=== PATIENT | female | born 1955 | race Caucasian/White ===

== ENCOUNTER 2021-05-02 06:23 | Day surgery (SDC) | payer MEDICARE ==
[~2021-05-02] VITALS: Ht 147.3 cm; Wt 54.2 kg
[~2021-05-02 06:23] MED LIST: ALBU90OI61 INH; AMOX500 PO; ASPI325 PO; ATOR20 PO; Acetaminophen650 M1 PO; BUPR150ER PO; CALPHO600 PO; CARV6.25 PO; CEPH500 PO; CYCL10 PO; Celexa20 MG PO; DOCU100 PO; ERGO400 PO; ERGO50000 PO; ESTR2; FISH1000 PO; FURO40 PO; HYDACE5 PO; LISI10 PO; NEBI5 PO; OMEP20ER PO; PRAM.125 PO; PROG100 PO; RANI150 PO; ROPI1 PO; SERT25 PO; SPIR25 PO; SULTRIDS; SULTRIDS PO
--- NOTE | 2021-05-02 10:07 | NUR ---
RECEIVED REPORT FROM HEMANTH BAH RN. PT CAME TO STEPDOWN AXOX4, TOLERATING PO FLUIDS AND REPOSITIONING SELF IN BED. PT REPORTS HAVING 5/10 DISCOMFORT ON LEFT SIDE INCISION SITE. PT HAS THREE INCISION SITES, ONE ON RIGHT SIDE OF ABDOMEN LATERAL TO UMBILICUS, ONE ABOVE THE UMBILICUS AND ONE TO THE LEFT ABDOMEN LATERAL TO THE UMBILICUS. ALL INCISION SITES ARE COVERED IN DERMABOND AND ARE CLEAN, DRY AND INTACT. NO DRAINAGE NOTED. LEFT INCISION SITE HAS BRUISING PRESENT ALONG INCISION LINE.
--- NOTE | 2021-05-02 10:53 | NUR ---
Patient up to Ambulate independently. Gait steady. Discharge instructions reviewed with patient. Patient verbalizes understanding. Copy given to patient to take home. Patient States Post-Procedure ride home has been arranged. Discharged via wheelchair to private car for ride home. ALL THREE INCINSION SITES ON ABDOMEN ARE CLEAN, DRY AND INTACT. LEFT INCISION SITE HAS MORE BRUISING THAN INCISION SITE OVER UMBILICUS AND RIGHT INCISION SITE. NETO ROCK RN ALSO ASSESSED INCISION SITES AND AGREED THAT LEFT INCISION SITE IS COMPLETELY COVERED WITH DERMABOND WHILE MINIMALLY MORE BRUISING THAN OTHER INCISION SITES. PT INSTRUCTED TO CONTINUE TO USE ICE THERAPY AND LIGHT PRESSURE TO INCISION SITE. NO DRAINAGE, SWELLING OR REDNESS NOTED ON ALL THREE INCISION SITES.
== END 2021-05-02 23:26 | disposition home or self-care (01) ==
LOC: ORSCMMR 06:23 → ORD 07:30 → ORSCMMR 07:30
DX: K40.90 Unilateral inguinal hernia, without obstruction or gangrene, not specified as recurrent (principal); I48.91 Unspecified atrial fibrillation; I10 Essential (primary) hypertension; G47.33 Obstructive sleep apnea (adult) (pediatric); J45.909 Unspecified asthma, uncomplicated; Z87.891 Personal history of nicotine dependence; K21.9 Gastro-esophageal reflux disease without esophagitis; F32.A Depression, unspecified; I42.9 Cardiomyopathy, unspecified; I50.9 Heart failure, unspecified; Z79.899 Other long term (current) drug therapy; Z79.82 Long term (current) use of aspirin
CPT/HCPCS: 49650; S2900; A9270; C1781; J0690; J1100; J2370; J2405; J2704; J3010; J7120

== ENCOUNTER 2021-05-19 19:45 | Emergency (ER) | payer MEDICARE ==
[~2021-05-19] VITALS: Ht 147.3 cm; Wt 54.5 kg
[2021-05-19 21:22] LABS: BASOPHILS ABSOLUTE AUTO 0.02 K/mm3 (0.00-0.23); BASOPHILS PERCENT AUTO 0 % (0-2); EOSINOPHILS ABSOLUTE AUTO 0.06 K/mm3 (0.00-0.68); EOSINOPHILS PERCENT AUTO 1 % (0-6); Hematocrit 34.1 % (33.0-51.0); Hemoglobin 11.3 g/dL (11.5-16.0); IMMATURE GRAN ABSOLUTE AUTO 0.01 K/mm3 (0.00-0.10); IMMATURE GRAN PERCENT AUTO 0 % (0-1); LYMPHOCYTES ABSOLUTE AUTO 1.79 K/mm3 (0.84-5.20); LYMPHOCYTES PERCENT AUTO 30 % (21-46); MONOCYTES ABSOLUTE AUTO 0.99 K/mm3 (0.16-1.47); MONOCYTES PERCENT AUTO 16 % (4-13); Mean Corpuscular HGB 31.3 pg (26.0-34.0); Mean Corpuscular HGB Conc 33.1 g/dL (31.5-36.5); Mean Corpuscular Volume 95 fL (80-100); Mean Platelet Volume 9.6 fL (9.1-12.4); NEUTROPHILS ABSOLUTE AUTO 3.19 K/mm3 (1.96-9.15); NEUTROPHILS PERCENT AUTO 53 % (41-73); Platelet Count 182 K/mm3 (150-400); RDW Coefficient Variation 13.7 % (11.7-14.2); RDW Standard Deviation 47.5 fL (35.1-46.3); Red Blood Cell Count 3.61 M/mm3 (3.80-5.20); White Blood Cell Count 6.06 K/mm3 (4.00-11.30)
[2021-05-19 21:42] LABS: Alanine Aminotransfer (ALT/SGP 16 U/L (12-78); Albumin, Blood 3.2 g/dL (3.4-5.0); Albumin/Globulin Ratio 0.9 (0.8-1.8); Alk Phos 62 U/L (50-136); Anion Gap 4 mmol/L (6-16); Aspartate Aminotrans (AST/SGOT 7 U/L (12-37); Bilirubin, Total 0.3 mg/dL (0.1-1.0); Blood Urea Nitrogen 5 mg/dL (8-24); Bun/Creatinine Ratio 9.3 (12.0-20.0); CO2, Blood 30 mmol/L (21-32); Chloride, Blood 104 mmol/L (98-108); Creatinine, Blood 0.54 mg/dL (0.40-1.00); Globulin, Blood 3.5 g/dL (2.2-4.0); Glomerular Filtration Rate >60 (60-); Glucose, Blood 104 mg/dL (70-99); Potassium, Blood 3.6 mmol/L (3.5-5.5); Sodium, Blood 138 mmol/L (136-145); Total Protein, Blood 6.7 g/dL (6.4-8.2)
[2021-05-19] MEDS ORDERED: HYDR1TAB94 PO (22:53)
[2021-05-19] MEDS ORDERED: Vibramycin100 MG PO (22:53)
== END 2021-05-20 00:29 | disposition home or self-care (01) ==
LOC: ER 19:45
PROVIDERS: Emergency Medicine
DX: L03.211 Cellulitis of face (principal); Z79.899 Other long term (current) drug therapy; Z79.82 Long term (current) use of aspirin; I50.9 Heart failure, unspecified; G47.30 Sleep apnea, unspecified
CPT/HCPCS: 36415; 70487; 80053; 85025; 96365; 96366; 99284-25; A9270; J3370; J7030; J7050; Q9967

== ENCOUNTER → 2022-04-17 | Outpatient (CLI) | payer MEDICARE ==
[~2022-04-17] MED LIST changes: +HYDR1TAB94 PO; +Vibramycin100 MG PO
== END | disposition home or self-care (01) ==
LOC: LAB 16:59 → LAB SHORT 16:59
DX: L02.214 Cutaneous abscess of groin (principal)
CPT/HCPCS: 87070; 87075; 87076; 87077; 87186; 87205

== ENCOUNTER 2023-11-12 06:59 | Day surgery (SDC) | payer MEDICARE ==
[2023-11-12] MEDS ORDERED: COLLAGEN 15001 EACH PO (07:48)
[2023-11-12] MEDS ORDERED: ALEN10 PO (07:48)
[2023-11-12] MEDS ORDERED: [UNRECOGNIZED DRUG - OTHER] (07:49)
[2023-11-12] MEDS ORDERED: LORA10ER PO (07:50)
[2023-11-12] MEDS ORDERED: vitamin b complex (07:50)
[2023-11-12] MEDS ORDERED: PANT40 PO (07:50)
[2023-11-12] MEDS ORDERED: LACT (07:50)
[2023-11-12] MEDS ORDERED: Lidocaine 2%-Epineph 1:100000 20 ML MDV ONE (07:51)
[2023-11-12 07:56] VITALS: BP 134/91
[2023-11-12 08:59] VITALS: BP 139/87
[2023-11-12 09:00] VITALS: BP 125/86
--- NOTE | 2023-11-12 09:11 | NUR ---
PATIENT ARRIVED BACK TO RECOVERY ROOM. VSS ON RA. STERI STRIPS IN PLACE. SITE C/D/I. DISCAHRGE INSTRUCTIONS REVIEWED WITH PATIENT. PATIENT DISCHARGED HOME AT THIS TIME. NO SEDATION GIVEN
== END 2023-11-12 09:57 | disposition home or self-care (01) ==
LOC: MHTC 06:59
DX: Z45.09 Encounter for adjustment and management of other cardiac device (principal); I48.0 Paroxysmal atrial fibrillation; I42.0 Dilated cardiomyopathy; I13.0 Hypertensive heart and chronic kidney disease with heart failure and stage 1 through stage 4 chronic kidney disease, or unspecified chronic kidney disease; N18.9 Chronic kidney disease, unspecified; I50.9 Heart failure, unspecified; K21.9 Gastro-esophageal reflux disease without esophagitis; G47.33 Obstructive sleep apnea (adult) (pediatric); E78.5 Hyperlipidemia, unspecified; Z98.890 Other specified postprocedural states; Z88.8 Allergy status to other drugs, medicaments and biological substances; Z79.899 Other long term (current) drug therapy

== ENCOUNTER 2024-02-19 09:58 | Day surgery (SDC) | payer MEDICARE ==
[~2024-02-19] VITALS: Ht 147.3 cm; Wt 127.4 kg
[~2024-02-19 09:58] MED LIST changes: +ALEN10 PO; +Atropine Sulfate 0.1 MG/ML 10ML SYR ONE; +COLLAGEN 15001 EACH PO; +Glycopyrrolate 0.2 MG/ML 1MLVIAL ONE; +LACT; +LORA10ER PO; +Lactated Ringer's 1,000 ML IV ONE; +Lidocaine 2% 5 ML SDV ONE; +Lidocaine HCl/Pf 1% 5 ML VIAL ONE; +Methylene Blue 1% 100 MG/10 ML VIAL ONE; +Ondansetron HCl 2 MG / ML 2ML Vial ONE; +PANT40 PO; +[UNRECOGNIZED DRUG - OTHER]; +ePHEDrine Sulfate 50 MG/ML 1ML Injection ONE; +vitamin b complex
[2024-02-19] MEDS ORDERED: Lactated Ringer's 1,000 ML IV ONE (10:50)
[2024-02-19] MEDS ORDERED: propofoL 50 ML IV ONE (10:50)
[2024-02-19 11:25] VITALS: BP 119/74
== END 2024-02-19 11:27 | disposition home or self-care (01) ==
LOC: ORSCSDS 09:58
PROVIDERS: Surgery
PROC: 0DB78ZX Excision of Stomach, Pylorus, Via Natural or Artificial Opening Endoscopic, Diagnostic (ICD-10-PCS; principal; 2024-02-19 11:15)
PROC: 0DB98ZX Excision of Duodenum, Via Natural or Artificial Opening Endoscopic, Diagnostic (ICD-10-PCS; principal; 2024-02-19 11:15)
PROC: 0DB48ZX Excision of Esophagogastric Junction, Via Natural or Artificial Opening Endoscopic, Diagnostic (ICD-10-PCS; principal; 2024-02-19 11:15)
DX: K21.9 Gastro-esophageal reflux disease without esophagitis (principal); K44.9 Diaphragmatic hernia without obstruction or gangrene; K29.80 Duodenitis without bleeding; I12.9 Hypertensive chronic kidney disease with stage 1 through stage 4 chronic kidney disease, or unspecified chronic kidney disease; N18.9 Chronic kidney disease, unspecified; G47.33 Obstructive sleep apnea (adult) (pediatric); J45.909 Unspecified asthma, uncomplicated; E78.5 Hyperlipidemia, unspecified; I48.0 Paroxysmal atrial fibrillation; I50.9 Heart failure, unspecified; F41.9 Anxiety disorder, unspecified; F32.A Depression, unspecified; Z79.899 Other long term (current) drug therapy
CPT/HCPCS: 88305; 88342; J0461; J2003; J2405; J2704; J7120; Q9968

== ENCOUNTER 2024-03-03 12:43 | Day surgery (SDC) | payer MEDICARE ==
[~2024-03-03] VITALS: Ht 147.3 cm; Wt 57.6 kg
[~2024-03-03 12:43] MED LIST changes: -Atropine Sulfate 0.1 MG/ML 10ML SYR ONE; +Erythromycin 0.5% Opth Oint 1 gm ONE; -Glycopyrrolate 0.2 MG/ML 1MLVIAL ONE; -Lactated Ringer's 1,000 ML IV ONE; -Lidocaine 2% 5 ML SDV ONE; -Lidocaine HCl/Pf 1% 5 ML VIAL ONE; -Methylene Blue 1% 100 MG/10 ML VIAL ONE; -Ondansetron HCl 2 MG / ML 2ML Vial ONE; +Oxymetazoline 0.05% Nasal Relief Spray 15mL BTL ONE; +Povidone-Iodine 450 DROP/30 ML Solution ONE; +Tetracaine HCl 1% 10MG/ML 2ML Amp ONE; +Tetracaine HCl/Pf 0.5% Opth Soln 4 ml ONE; -ePHEDrine Sulfate 50 MG/ML 1ML Injection ONE
[2024-03-03] MEDS ORDERED: FentaNYL Citrate 50 MCG/ML 2 ML Injection ONE (14:23)
[2024-03-03] MEDS ORDERED: Dexamethasone Sod Phos 10 MG/ML 1ML VIAL ONE (14:23)
[2024-03-03] MEDS ORDERED: Midazolam HCl 1MG / ML 2ML Vial ONE (14:23)
[2024-03-03] MEDS ORDERED: Ondansetron HCl 2 MG / ML 2ML Vial ONE (14:23)
[2024-03-03] MEDS ORDERED: propofoL 20 ML IV ONE (14:23)
[2024-03-03] MEDS ORDERED: Phenylephrine HCl 100 MCG/ML-NS 10MLSYR (1MG/10ML) ONE (14:57)
[2024-03-03 16:15] VITALS: BP 146/91
--- NOTE | 2024-03-03 16:16 | NUR ---
03/03/24 1616 Rolly Styles PT INSTRUCTED TO MONITOR B/P AT HOME AND FOLLOW UP WITH PCP, IF NEEDED. SHE DENIED CARDIAC SYMPTOMS INCLUDING CP, PATEL, WEAKNESS, DIZZINESS, SOB, NAUSEA, VISUAL DISTURBANCE. NONE WERE OBSERVED.
== END 2024-03-03 17:00 | disposition home or self-care (01) ==
LOC: ORSCSDS 12:43
PROVIDERS: Ophthalmology
PROC: 081Y0J3 Bypass Left Lacrimal Duct to Nasal Cavity with Synthetic Substitute, Open Approach (ICD-10-PCS; principal; 2024-03-03 14:00)
DX: H04.512 Dacryolith of left lacrimal passage (principal); I10 Essential (primary) hypertension; E78.00 Pure hypercholesterolemia, unspecified; I48.91 Unspecified atrial fibrillation; Z87.891 Personal history of nicotine dependence; Z79.899 Other long term (current) drug therapy
CPT/HCPCS: A9270; J1100; J2250; J2371; J2405; J2704; J3010

== ENCOUNTER 2024-05-18 06:17 | Inpatient (IN) | payer MEDICARE ==
[2024-05-18] VITALS (17 sets, daily range): BP systolic 90–145; BP diastolic 58–85
[~2024-05-18] VITALS: Ht 144.8 cm; Wt 57.0 kg
[~2024-05-18 06:17] MED LIST changes: +ALBU90OI INH; -ALBU90OI61 INH; +CENTRUM SILVER1 EAC2 PO; -Erythromycin 0.5% Opth Oint 1 gm ONE; -LACT; +LACT PO; -Oxymetazoline 0.05% Nasal Relief Spray 15mL BTL ONE; -Povidone-Iodine 450 DROP/30 ML Solution ONE; -Tetracaine HCl 1% 10MG/ML 2ML Amp ONE; -Tetracaine HCl/Pf 0.5% Opth Soln 4 ml ONE; +VITAMIN B COMP0.4 MG PO; +VITAMIN D5000 UNIT PO; -[UNRECOGNIZED DRUG - OTHER]; +[UNRECOGNIZED DRUG - OTHER] PO; -vitamin b complex
[2024-05-18] MEDS ORDERED: Acetaminophen 500 MG Tab PO SCH (06:20)
[2024-05-18] MEDS ORDERED: Lactated Ringer's 1,000 ML IV SCH (06:20)
[2024-05-18] MEDS ORDERED: Sugammadex Sodium 200 MG/2ML SDV (100 MG/ML) ONE (06:29)
[2024-05-18] MEDS ORDERED: Dexamethasone Sod Phos 10 MG/ML 1ML VIAL ONE (06:29)
[2024-05-18] MEDS ORDERED: Ondansetron HCl 2 MG / ML 2ML Vial ONE (06:29)
[2024-05-18] MEDS ORDERED: Rocuronium Bromide 10 MG/ML 5ML Injection IV ONE (06:29)
[2024-05-18] MEDS ORDERED: Ketorolac Tromethamine 30mg Vial ONE (06:29)
[2024-05-18] MEDS ORDERED: Metoclopramide HCl 5MG / ML 2ML Vial ONE (06:29)
[2024-05-18] MEDS ORDERED: propofoL 100 ML IV ONE (06:32)
[2024-05-18] MEDS ORDERED: Bupivacaine 0.5% HCl 5 MG/ML 30MLVIAL ONE (06:57)
[2024-05-18] MEDS ORDERED: HYDROmorphone HCl/Pf 1MG SYR ONE ×2 (07:03→10:36)
[2024-05-18] MEDS ORDERED: Famotidine 10 MG/ML 2ML Vial ONE (07:11)
--- NOTE | 2024-05-18 07:26 | NUR ---
History, Chart, Medications and Allergies reviewed before start of procedure.Pre-Op teaching done. Pt verbalizes understanding. Lungs clear T/O to Auscultation. Patient confirms NPO status and agrees with scheduled surgery.
[2024-05-18] MEDS ORDERED: Phenylephrine HCl 100 MCG/ML-NS 10MLSYR (1MG/10ML) ONE (07:42)
[2024-05-18] MEDS ORDERED: FentaNYL Citrate 50 MCG/ML 2 ML Injection ONE ×2 (07:54→09:50)
[2024-05-18] MEDS ORDERED: Labetalol HCL 5 MG/ML 4ML Injection (Single Dose) ONE (09:15)
[2024-05-18] MEDS ORDERED: FLU VACC TS2024-25(6MOS UP)/PF 45 MCG/0.5 ML SYRINGE IM SCH (09:55)
[2024-05-18] MEDS ORDERED: Acetaminophen 325 MG TABLET PO PRN (09:55)
[2024-05-18] MEDS ORDERED: Ondansetron HCl 2 MG / ML 2ML Vial IV PRN (10:00)
[2024-05-18] MEDS ORDERED: HYDROmorphone HCl/Pf 1MG SYR IV PRN (10:00)
[2024-05-18] MEDS ORDERED: OxyCODONE HCL 5 MG TAB PO PRN (10:00)
[2024-05-18] MEDS ORDERED: Albuterol HFA200 ACT/6.7 GM INH INH PRN (10:00)
[2024-05-18] MEDS ORDERED: ePHEDrine Sulfate 50 MG/ML 1ML Injection ONE (10:06)
[2024-05-18] MEDS ORDERED: propofoL 50 ML IV ONE (10:08)
[2024-05-18] MEDS ORDERED: Lisinopril 10 MG Tab PO SCH (18:00)
--- NOTE | 2024-05-18 18:30 | NUR ---
SHIFT SUMMARY POD0 LAP HILDA FUNDOPLICATION, A/OX4, VSS, TOLERATING DIET, ADVANCING ORDERED, NECK PAIN HAS IMPROVED TODAY, MINIMAL ABDOMINAL PAIN. NO ACUTE EVENTS, CALL LIGHT IN REACH.
[2024-05-18] MEDS ORDERED: Docusate Sodium 250 MG Cap PO SCH (21:00)
[2024-05-18] MEDS ORDERED: Ondansetron 4 MG TAB PO PRN (21:55)
[2024-05-19 00:06] VITALS: BP 124/77
[2024-05-19 04:31] VITALS: BP 137/83
[2024-05-19 04:42] LABS: Hematocrit 34.3 % (33.0-51.0); Hemoglobin 11.5 g/dL (11.5-16.0)
--- NOTE | 2024-05-19 05:46 | NUR ---
SHIFT SUMMARY PT S/P FUNDOPLICATION. PT HAS RESTED OFF AND ON T/O THE NIGHT. INTERMITTENT ABD PAIN CONTROLLED WITH MEDS PER EMAR. SOME NAUSEA THIS SHIFT, ZOFRAN EFFECTIVE. BOWEL TONES HYPERACTIVE, SURGICAL SITE WNL. PT AMBULATING AND VOIDING. VITALS STABLE. BED IN LOWEST POSITION, CALL LIGHT WITHIN REACH.
[2024-05-19 07:09] VITALS: BP 145/86
[2024-05-19] MEDS ORDERED: Atorvastatin 10 MG Tab PO SCH (09:00)
[2024-05-19] MEDS ORDERED: Enoxaparin 40 MG/0.4 ML SYR SC SCH (09:00)
[2024-05-19] MEDS ORDERED: Pramipexole DI-HCL 0.25 MG Tab PO SCH (09:00)
[2024-05-19] MEDS ORDERED: buPROPion HCL 150 MG TAB.SR.12H PO SCH (09:00)
[2024-05-19] MEDS ORDERED: ONDA4 PO (09:32)
[2024-05-19] MEDS ORDERED: OXAYDO5 M1 PO (09:33)
--- NOTE | 2024-05-19 10:19 | NUR ---
Pt. is awake and welcomed my visit. Pt. is known to this bookbinder chief from the community. A life review is facilitated. Listen with interest and empathy. Pt. verbalized gratitude for the great medical care from Dr. Michelle and the surgical team. Considered matters of felicita, belief, and the congregation. Pt. displayed evidence of being fully engaged and aware. Prayed with the Pt. Pt. verbalized gratitude for the spiritual care visit.
--- NOTE | 2024-05-19 14:03 | NUR ---
DC INSTRUCTIONS GIVEN THIS AM, PT VERBALIZED UNDERSTANDING, PT WAITING FOR RIDE HOME.
--- NOTE | 2024-05-19 15:05 | NUR ---
PT DC'D HOME, BELONGINGS GIVEN TO PT AND DAUGHTER. DC INSTRUCTIONS AND EDUCATION GIVEN THIS AM.
== END 2024-05-19 15:05 | disposition home or self-care (01) | DRG 327 ==
LOC: SURS 06:17 → PRE IP 07:30 → SURS 10:40
PROVIDERS: ADMIT Surgery
PROC: 8E0W4CZ Robotic Assisted Procedure of Trunk Region, Percutaneous Endoscopic Approach (ICD-10-PCS; 2024-05-18)
PROC: 0BQT4ZZ Repair Diaphragm, Percutaneous Endoscopic Approach (ICD-10-PCS; principal; 2024-05-18 07:30)
DX: K44.9 Diaphragmatic hernia without obstruction or gangrene (principal); I13.0 Hypertensive heart and chronic kidney disease with heart failure and stage 1 through stage 4 chronic kidney disease, or unspecified chronic kidney disease; K21.9 Gastro-esophageal reflux disease without esophagitis; J45.909 Unspecified asthma, uncomplicated; I48.91 Unspecified atrial fibrillation; D63.1 Anemia in chronic kidney disease; I50.9 Heart failure, unspecified; N18.9 Chronic kidney disease, unspecified; F41.8 Other specified anxiety disorders; D50.9 Iron deficiency anemia, unspecified; E66.9 Obesity, unspecified; G47.33 Obstructive sleep apnea (adult) (pediatric); G25.81 Restless legs syndrome; M17.10 Unilateral primary osteoarthritis, unspecified knee; Z87.19 Personal history of other diseases of the digestive system; Z98.890 Other specified postprocedural states; Z90.49 Acquired absence of other specified parts of digestive tract; Z90.89 Acquired absence of other organs; Z90.710 Acquired absence of both cervix and uterus; Z98.51 Tubal ligation status; Z79.899 Other long term (current) drug therapy; Z79.51 Long term (current) use of inhaled steroids; Z79.811 Long term (current) use of aromatase inhibitors; Z88.8 Allergy status to other drugs, medicaments and biological substances; Z87.891 Personal history of nicotine dependence
CPT/HCPCS: 36415; 85014; 85018; 94760; A9270; C1781; J1100; J1171; J1650; J1885; J2371; J2405; J2704; J2765; J3010; J7120